=== PATIENT | female | born 1970 | race Caucasian/White ===

== ENCOUNTER → 2016-12-07 | Outpatient (CLI) | payer OTHER ==
--- NOTE | 2016-12-07 18:00 | RADIOLOGY REPORT PS360 ---
US BREAST-RT COMPLETE W/AXILLA COMPARISON: None INDICATION: Right breast mass ORDERING PHYSICIAN: Cosme Gustafson MD PATIENT AGE: 46 years TECHNIQUE: Standard ultrasound FINDINGS: There is a macrolobulated mass in the 10:00 region of the right breast hypoechoic in nature with some decreased through transmission of sound suspicious for malignancy. This measures 2 x 2 centimeters. Ultrasound performed as a prebiopsy ultrasound. There are outside exam but they're not available for review. IMPRESSION: Suspicious mass 10:00 region of the right breast BI-RADS CATEGORY: 4_Suspicious Abnormality RECOMMENDED FOLLOWUP: Biopsy of the right breast (A letter has been sent to the patient regarding results of the study.)
--- NOTE | 2016-12-07 18:05 | RADIOLOGY REPORT PS360 ---
US BIOPSY OR PARACENTESIS, US ORGAN SITE (BREAST) CLINICAL INDICATION: Patient has a palpable right breast mass and has been worked up at another institution. At the request of the referring physician an ultrasound-guided biopsy was performed so the patient would not have to wait an extended period time for diagnosis. Correlation with the outside imaging studies is recommended RT BREAST MASS ORDERING PHYSICIAN: Cosme Gustafson MD PATIENT AGE: 46 years COMPARISON: None TECHNIQUE: Following obtaining informed consent or aseptic conditions and local anesthesia with 1% lidocaine using sonographic guidance, a 16-gauge biopsy needle was guided into the right breast lesion. 4 core biopsies were obtained. Fine-needle aspiration was also performed. The patient tolerated the procedure well without evidence of immediate complication Pathology: Pending IMPRESSION: Uneventful ultrasound-guided core biopsy and fine-needle aspiration of the right breast. Pathology is pending
== END ==
LOC: RAD 13:25
PROC: 0H9T3ZX Drainage of Right Breast, Percutaneous Approach, Diagnostic (ICD-10-PCS; principal; 2016-12-07)
DX: N63.11 Unspecified lump in the right breast, upper outer quadrant (principal)